=== PATIENT | female | born 1990 | race Two or more races ===

== ENCOUNTER 2016-11-05 17:08 | Inpatient (IN) | payer OTHER ==
[~2016-11-05] VITALS: Ht 170.2 cm; Wt 90.0 kg
[2016-11-05 17:53] LABS: HEMOGLOBIN 12.9 g/dL (11.7-16.4)
[2016-11-05 18:05] LABS: ASPARTATE AMINO TRANSFERASE 18 U/L (15-37); BLOOD UREA NITROGEN 7 mg/dL (7-18)
[2016-11-05] MEDS ORDERED: TOPI25TA32 PO (19:27)
[2016-11-05] MEDS ORDERED: CYCL-259 PO (19:27)
[2016-11-05] MEDS ORDERED: SODIUM CHLORIDE 0.9% 1,000 ML IV ONE (20:17)
[2016-11-05] MEDS ORDERED: SODIUM CHLORIDE 0.9% 1,000ML IVBOLUS ONE (20:30)
[2016-11-05] MEDS ORDERED: SODIUM CHLORIDE FLUSH 10ML SYR IVF ONE (20:30)
[2016-11-05] MEDS ORDERED: ONDANSETRON 2MG/ML, 2ML IVPush ONE (21:00)
[2016-11-05] MEDS ORDERED: MORPHINE SULFATE 4 MG/ML, 1ML IVPush PRN (21:00)
[2016-11-05] MEDS ORDERED: MIDAZOLAM 1 MG/ML, 2ML ONE (21:51)
[2016-11-05] MEDS ORDERED: FENTANYL PF 250 MCG/5ML ONE (21:52)
[2016-11-05] MEDS ORDERED: BUPIVACAINE/PF-EPI 0.25% 1:200K ONE (21:53)
[2016-11-05] MEDS ORDERED: ONDANSETRON 2MG/ML, 2ML IVPush PRN (23:00)
[2016-11-05] MEDS ORDERED: ACETAMINOPHEN 325 MG TABLET PO PRN (23:00)
[2016-11-05] MEDS ORDERED: MIDAZOLAM 1 MG/ML, 2ML IV PRN (23:00)
[2016-11-05] MEDS ORDERED: FENTANYL PF 100 MCG/2ML IV PRN (23:00)
[2016-11-05] MEDS ORDERED: LABETALOL 5MG/ML, 20ML IV PRN (23:00)
[2016-11-05] MEDS ORDERED: hydrALAzine 20 MG/ML, 1ML IV PRN (23:00)
[2016-11-05] MEDS ORDERED: ALBUTEROL/IPRATROPIUM 2.5MG/0.5MG, 3 ML NPPB PRN (23:00)
[2016-11-05] MEDS ORDERED: MEPERIDINE/PF 25MG/0.5ML IVPush PRN (23:00)
[2016-11-05] MEDS ORDERED: PROMETHAZINE 25 MG/ML, 1ML IV PRN (23:00)
[2016-11-05] MEDS ORDERED: OXYcodone 5 MG/5 ML ORAL.SOL UDC PO PRN (23:00)
[2016-11-05] MEDS ORDERED: FENTANYL PF 100 MCG/2ML ONE ×2 (23:08→23:20)
[2016-11-05] MEDS ORDERED: ACETAMINOPHEN 650 MG/20.3 ML UDC ONE (23:20)
[2016-11-05] MEDS ORDERED: HYDROmorphone 2 MG/ML, 1ML ONE (23:20)
[2016-11-05] MEDS ORDERED: OXYcodone 5 MG/5 ML ORAL.SOL UDC ONE (23:21)
[2016-11-05] MEDS: HYDROmorphone 1 MG/ML, 1ML IV PRN ×2 (23:25→23:48)
[2016-11-06] MEDS ORDERED: GLYCOPYRROLATE 0.2MG/1ML ONE
[2016-11-06] MEDS ORDERED: SUCCINYLCHOLINE 20 MG/ML, 10ML ONE
[2016-11-06] MEDS ORDERED: DEXAMETHASONE 4 MG/ML, 1ML ONE
[2016-11-06] MEDS ORDERED: PROPOFOL 10 MG/ML, 20ML ONE
[2016-11-06] MEDS ORDERED: NEOSTIGMINE 1 MG/ML, 10ML ONE
[2016-11-06] MEDS ORDERED: ONDANSETRON 2MG/ML, 2ML ONE ×2 (00:05)
[2016-11-06] MEDS ORDERED: LACTATED RINGERS 1,000 ML IV SCH (01:30)
[2016-11-06] MEDS ORDERED: LORazepam 2 MG/ML, 1ML IV PRN (01:30)
[2016-11-06] MEDS ORDERED: LORazepam 1MG TABLET PO PRN (01:30)
[2016-11-06] MEDS ORDERED: ACETAMINOPHEN 650 MG SUPP PR PRN (01:30)
[2016-11-06] MEDS ORDERED: SODIUM CHLORIDE 0.9%, 500ML IV PRN (01:30)
[2016-11-06] MEDS ORDERED: ACETAMINOPHEN 325 MG TABLET PO PRN (01:30)
[2016-11-06] MEDS ORDERED: ONDANSETRON 2MG/ML, 2ML IV PRN (01:30)
[2016-11-06 03:08] VITALS: BP 99/53
[2016-11-06] MEDS: OXYcodone/APAP 5/325MG TABLET PO PRN ×2 (04:42→08:53)
[2016-11-06 05:19] LABS: HEMOGLOBIN 10.6 g/dL (11.7-16.4)
[2016-11-06 07:11] VITALS: BP 108/66
[2016-11-06] MEDS ORDERED: OXYC-302 PO (10:01)
[2016-11-06] MEDS ORDERED: IBUP-1 PO (10:01)
== END 2016-11-06 11:15 | disposition home or self-care (01) | DRG 777 ==
LOC: ED 21:32 → 4NOR 11-06 00:52 → DCLOUNGE 11-06 11:01
PROVIDERS: ADMIT Obstetrics & Gynecology; ATTEND Obstetrics & Gynecology
PROC: 0UT64ZZ Resection of Left Fallopian Tube, Percutaneous Endoscopic Approach (ICD-10-PCS; 2016-11-05)
PROC: 10T24ZZ Resection of Products of Conception, Ectopic, Percutaneous Endoscopic Approach (ICD-10-PCS; principal; 2016-11-05 21:00)
DX: O00.10 Tubal pregnancy without intrauterine pregnancy (principal); K66.1 Hemoperitoneum; Z90.49 Acquired absence of other specified parts of digestive tract; G89.29 Other chronic pain
CPT/HCPCS: 36415; 76830; 80053; 81001; 84702; 85025; 86850; 86900; 86901; 86923; 87086; 88305; J1100; J1170; J2250; J2405; J2704; J2710; J3010; J3490; J0330